=== PATIENT | male | born 1975 | race Caucasian/White ===

== ENCOUNTER 2021-01-05 21:57 | Emergency (ER) | payer SELFPAY ==
[~2021-01-05] VITALS: Ht 180.3 cm; Wt 88.8 kg
[2021-01-05] MEDS ORDERED: ONDANSETRON 2MG/ML, 2ML ONE (22:16)
[2021-01-05] MEDS ORDERED: FAMOTIDINE 20 MG/2 ML ONE (22:16)
[2021-01-05] MEDS ORDERED: MAALOX/HYOSCYAMINE/LIDOCAINE 45 ML BTL ONE (22:16)
[2021-01-05] MEDS ORDERED: SODIUM CHLORIDE 0.9% 1,000ML IVBOLUS ONE (22:30)
[2021-01-05] MEDS ORDERED: FAMOTIDINE 20 MG/2 ML IVPush ONE (22:30)
[2021-01-05] MEDS ORDERED: MAALOX/HYOSCYAMINE/LIDOCAINE 45 ML BTL PO ONE (22:30)
[2021-01-05] MEDS ORDERED: ONDANSETRON 2MG/ML, 2ML IVPush ONE (22:30)
[2021-01-05] MEDS ORDERED: SODIUM CHLORIDE FLUSH 10ML SYR IVF ONE (22:30)
--- NOTE | 2021-01-05 22:37 | NUR ---
PT STATES HAVING NAUSEA FOR 30 DAYS SINCE HE STARTED HAVING MULTIPLE DENTAL PROCEDURES FOR CAVITIES. PT STATES TAKING PRN NORCO AT HOME. VOMITING HAS BEEN MORE FREQUENT FOR PAST 24 HOURS. PT ADMITS TO 1-2 ALCOGHOLIC DRINKS A DAY. PIV STARTED, PT ON MONITORS, MEDICATED PER EMAR, LABS SENT.
[2021-01-05 23:00] LABS: ALBUMIN 4.9 g/dL (3.4-5.0); ANION GAP 10 mmol/L (5-15); CALCIUM 10.5 mg/dL (8.5-10.1); CHLORIDE 106 mmol/L (98-107)
[2021-01-05 23:02] LABS: MEAN CORPUSCULAR HEMOGLOBIN 32.6 pg (27.5-34.5); MEAN CORPUSCULAR HGB CONC 34.9 g/dL (33.2-36.2); PLATELET COUNT 254 x10^3/uL (130-400); RED BLOOD COUNT 5.79 x10^6/uL (4.38-5.82); RED CELL DISTRIBUTION WIDTH 13.5 % (9.4-14.8)
[2021-01-05 23:11] LABS: ALANINE AMINOTRANSFERASE 114 U/L (12-78); ALKALINE PHOSPHATASE 110 U/L (45-117); BILIRUBIN,TOTAL 0.9 mg/dL (0.2-1.0); CREATININE 1.44 mg/dL (0.7-1.3); TOTAL PROTEIN 9.4 g/dL (6.4-8.2)
[2021-01-05] MEDS ORDERED: OMNIPAQUE 350 MG/ML, 100ML BOTTLE ONE (23:30)
[2021-01-05 23:40] LABS: MD YES
[2021-01-05 23:41] LABS: <PLATELET ESTIMATE> ADEQUATE; <PLT MORPHOLOGY> NORMAL PLT MORPH; ANISOCYTOSIS 1+; BAND#(MANUAL) 0.68 x10^3/uL; BANDS%(MANUAL) 4 % (0-7); LYMPH#(MANUAL) 1.88 x10^3/uL (1-3.4); LYMPHS% (MANUAL) 11 % (22-44); METAMYELOCYTES# (MANUAL) 0.17 x10^3/uL (0-0); METAMYELOCYTES% (MANUAL) 1 % (0-1); MONOS#(MANUAL) 0.51 x10^3/uL (0.3-2.7); MONOS% (MANUAL) 3 % (2-9); SEG#(MANUAL) 13.85 x10^3/uL (1.8-6.8); SEGS% (MANUAL) 81 % (42-75); TEAR DROPS 1+
--- NOTE | 2021-01-05 23:45 | NUR ---
PT TO CT
--- NOTE | 2021-01-06 00:43 | NUR ---
PT RESTING COMFORTABLY, NO DISTRESS AT THIS TIME, WATCHING T.V. AND AWAITING LAB AND CT RESULTS.
[2021-01-06 01:24] VITALS: BP 145/91
== END 2021-01-06 01:46 | disposition home or self-care (01) ==
LOC: ED 22:50
DX: R11.2 Nausea with vomiting, unspecified (principal); R55 Syncope and collapse; E86.0 Dehydration; R94.5 Abnormal results of liver function studies; Z79.899 Other long term (current) drug therapy
CPT/HCPCS: 36415; 74177; 80053; 80320; 83690; 85025; 96361; 96374; 96375; 99285; J2405; J7030; Q9967; G0480